=== PATIENT | female | born 1965 | race African-American/Black ===

== ENCOUNTER → 2017-04-11 | Outpatient (CLI) | payer OTHER ==
[2016-01-15 18:59] VITALS: BP 154/78
[2017-04-11 08:11] LABS: EOSINOPHILS # (AUTO) 0.2 x10^3/uL (0.0-0.2); EOSINOPHILS % (AUTO) 4.4 % (0.9-2.9); HEMATOCRIT 39.8 % (36.0-47.0); LYMPHOCYTES # (AUTO) 1.6 X10^3/uL (1.3-2.9); LYMPHOCYTES % (AUTO) 35.8 % (21.0-51.0); MEAN CORPUSCULAR HGB CONC 32.6 g/dL (33.0-35.0); MEAN PLATELET VOLUME 10.5 fL (7.4-11.0); MONOCYTES # (AUTO) 0.4 x10^3/uL (0.3-0.8); MONOCYTES % (AUTO) 8.2 % (0.0-13.0); NEUTROPHILS # (AUTO) 2.3 x10^3/uL (2.2-4.8); NEUTROPHILS % (AUTO) 50.6 % (42.0-75.0); PLATELET COUNT 157 X10^3/uL (150.0-450.0); RED BLOOD COUNT 4.63 X10^6/uL (3.5-5.4); WHITE BLOOD COUNT 4.6 X10^3/uL (3.6-10.0)
[2017-04-11 08:21] LABS: ALANINE AMINOTRANSFERASE 36 Units/L (12-78); ALBUMIN 3.3 g/dL (3.4-5.0); ALKALINE PHOSPHATASE 73 Units/L (46-116); ASPARTATE AMINO TRANSFERASE 23 Units/L (15-37); BILIRUBIN,DIRECT 0.08 mg/dL (0-0.2); BLOOD UREA NITROGEN 12 mg/dL (7-18); CALCIUM 8.1 mg/dL (8.5-10.1); CARBON DIOXIDE 30.8 mmol/L (21-32); CHLORIDE 108 mmol/L (98-107); CHOL/HDL RATIO 2.9 (0.0-5.0); CHOLESTEROL 166 mg/dL (0-200); CREATININE 0.92 mg/dL (0.55-1.02); GLUCOSE 95 mg/dL (65-99); HDL CHOLESTEROL 58 mg/dL (40-60); SODIUM 143 mmol/L (136-145); TOTAL PROTEIN 6.5 g/dL (6.4-8.2); TRIGLYCERIDES 50 mg/dL (0-150); eGFR BLACK RACES > 60 (>60); eGFR NON BLACK RACES > 60 (>60)
== END ==
LOC: LAB 07:47
PROVIDERS: ATTEND Internal Medicine Cardiovascular Disease
DX: R07.2 Precordial pain (principal); R00.2 Palpitations
CPT/HCPCS: 36415; 80048; 80061; 80076; 85025

== ENCOUNTER 2017-04-15 10:49 | Emergency (ER) | payer OTHER ==
[2017-04-15 10:55] VITALS: BP 118/74; BMI 31.4
--- NOTE | 2017-04-15 11:49 | DR.GENAD ---
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 BP NOT ELEVATED CURRENTLY. NO TRAUMA. - Complaint/Symptoms Chief Complaint Doctors Comments: NECK PAIN, BP ELEVATED. S/P CARDIAC CATH. DENIES CHEST PAIN. Chief Complaint:: PT. C/O HIGH BLOOD PRESSURE AND NECK PAIN. PT. WAS JUST DISCHARGED FROM [facility] IN [place] YESTERDAY WITH A DIAGNOSIS OF CARDIOMYOPATHY AND ANGINA PECTORIS. PT. IS CURRENTLY WEARING A HEART MONITOR. PT. HAD A HEART CATH PERFORMED ON SATURDAY. - Nurses notes reviewed Nurses Notes Review: Yes - Source History Provided: Patient - Mode of Arrival Mode of Arrival: Ambulatory - Timing Onset of Chief Complaint: 04/15/17 Came on: Suddenly - Duration Duration: Constant Duration: Hours - Severity Severity: Moderate PMH - PMH Past Medical History: Yes Past Medical History: Hypertension Past Medical History Comment: CARDIOMYOPATHY, ANGINA PECTORIS Past Surgical History: Yes Surgical History: - Family History History of Family Medical Conditions: Yes Family Medical History: Diabetes Mellitus, [place], Coronary Artery Disease, Hypertension - Social History Does patient currently use any type of tobacco product: Yes Have you used tobacco products in the last 12 months: Yes Type of Tobacco Use: Cigarettes Does any household member use tobacco: No Alcohol Use: None Do you use any recreational Drugs:: No Lives With: Spouse Lives Where: Home - infectious screening In the last 2 months have you had wt loss of >10#?: NO Have you had fever, night sweats or hemotysis?: No Have you traveled outside the country in the last 6 months?: No Isolation: Standard ROS - Review of Systems Constitutional: No Symptoms Reported Eyes: No Symptoms Reported ENTM: No Symptoms Reported Respiratoy: No Symptoms Reported Cardiovascular: Other (BP ELEVATED AT HOME.) Gastrointestinal/Abdominal: No Symptoms Reported Genitourinary: No Symptoms Reported Neurological: No Symptoms Reported Musculoskeletal: Muscle Pain, Neck Pain Integumentary: No Symptoms Reported Hematologic/Lymphatic: No Symptoms Reported Endocrine: No Symptoms Reported All Other Systems: Reviewed and Negative PE - Vital Signs Vitals: Temperature 97.7 F Pulse Rate 57 Respiratory Rate 17 Blood Pressure 118/74 O2 Sat by Pulse Oximetry 98 - General Limitations: No Limitations General Appearance: Alert - Head Head Exam: Normal Inspection - Eyes Eye exam: Normal Appearance - ENT ENT Exam: Normal External Ear Exam External Ear Exam: Normal External Inspection TM/Canal Exam: Bilateral Normal Nose Exam: Normal Nose Exam Mouth Exam: Normal Inspection Throat Exam: Normal Inspection - Neck Neck Exam: Trachea Midline, Tenderness. negative: Meningismus, Lymphadenopathy - Chest Chest Inspection: Symmetric Chest Wall Rise - Respiratory Respiratory Exam: Normal Lung Sounds Bilat Respiratory Exam: Bilateral Clear to Auscultation - Cardiovascular Cardiovascular Exam: Regular Rate, Normal Rhythm, Normal Heart Sounds - Abdominal Exam Abdominal Exam: Normal Inspection - Extremities Extremities Exam: Normal Inspection - Back Back Exam: Normal Inspection - Neurologic Neurological Exam: Alert, Oriented X3 - Skin Skin Exam: Normal Color MDM - Additional Information Additional Information Obtained From: Old Records (SPRAIN, FRACTURE, HTN) - Differential Diagnosis Differential Diagnosis: HTN AT HOME, NECK PAIN, SPRAIN, FRACTURE, CAD, [place] Course - Treatment Treatment: SEE ORDERS. - Education/Counseling Education/Counseling: Patient, Education Educated On: Diagnosis, Needs for Follow Up ROR - Labs Reviewed Laboratory Results Reviewed?: Yes Result Diagrams: 04/15/17 12:18 04/15/17 12:18 Laboratory: WBC 4.7 X10^3/uL (3.6-10.0) 04/15/17 12:18 RBC 4.70 X10^6/uL (3.5-5.4) 04/15/17 12:18 Hgb 13.4 g/dL (12.0-16.0) 04/15/17 12:18 Hct 40.5 % (36.0-47.0) 04/15/17 12:18 MCV 86.3 fL (80.0-100.0) 04/15/17 12:18 MCH 28.5 pg (27.0-34.0) 04/15/17 12:18 MCHC 33.0 g/dL (33.0-35.0) 04/15/17 12:18 RDW 14.7 % (11.6-16.5) 04/15/17 12:18 Plt Count 138 X10^3/uL (150.0-450.0) L 04/15/17 12:18 MPV 10.6 fL (7.4-11.0) 04/15/17 12:18 Neut % 40.5 % (42.0-75.0) L 04/15/17 12:18 Lymph % 44.6 % (21.0-51.0) 04/15/17 12:18 [place] % 9.4 % (0.0-13.0) 04/15/17 12:18 Eos % 4.7 % (0.9-2.9) H 04/15/17 12:18 Baso % 0.8 % (0.2-1.0) 04/15/17 12:18 Neut # 1.9 x10^3/uL (2.2-4.8) L 04/15/17 12:18 Lymph # 2.1 X10^3/uL (1.3-2.9) 04/15/17 12:18 [place] # 0.4 x10^3/uL (0.3-0.8) 04/15/17 12:18 Eos # 0.2 x10^3/uL (0.0-0.2) 04/15/17 12:18 Baso # 0.0 X10^3/uL (0.0-0.1) 04/15/17 12:18 Absolute Nucleated RBC 0.1 /100WBC 04/15/17 12:18 Sodium 139 mmol/L (136-145) 04/15/17 12:18 Corrected Sodium TNP 04/15/17 12:18 Potassium 4.7 mmol/L (3.5-5.1) 04/15/17 12:18 Chloride 103 mmol/L (98-107) 04/15/17 12:18 Carbon Dioxide 32.9 mmol/L (21-32) H 04/15/17 12:18 BUN 11 mg/dL (7-18) 04/15/17 12:18 Creatinine 0.79 mg/dL (0.55-1.02) 04/15/17 12:18 Est GFR (MDRD) Af Amer > 60 (>60) 04/15/17 12:18 Est GFR (MDRD) Non-Af > 60 (>60) 04/15/17 12:18 Glucose 85 mg/dL (65-99) 04/15/17 12:18 Calcium 8.8 mg/dL (8.5-10.1) 04/15/17 12:18 Corrected Calcium TNP 04/15/17 12:18 Total Bilirubin 0.60 mg/dL (0.2-1.0) 04/15/17 12:18 AST 29 Units/L (15-37) 04/15/17 12:18 ALT 28 Units/L (12-78) 04/15/17 12:18 Alkaline Phosphatase 70 Units/L (46-116) 04/15/17 12:18 Creatine Kinase 72 Units/L (26-192) 04/15/17 12:18 CK-MB (CK-2) 1.0 ng/mL (0-4.0) 04/15/17 12:18 CK/CKMB % Calc 1.4 % (<4) 04/15/17 12:18 Troponin I < 0.02 ng/mL (0-1.5) 04/15/17 12:18 Total Protein 7.3 g/dL (6.4-8.2) 04/15/17 12:18 Albumin 3.6 g/dL (3.4-5.0) 04/15/17 12:18 Globulin 3.7 g/dL (2.5-4.5) 04/15/17 12:18 Albumin/Globulin Ratio 1.0 Ratio (1.1-2.1) L 04/15/17 12:18 - XRAY XRAY Interpreted by: Radiologist XRAY Findings: REPORT DISCUSS WITH PATIENT. - EKG Rhythm: NSR (EKG NOTED) - Diagnosis Discharge Problem: Cervical strain, acute Qualifiers: Encounter type: initial encounter Qualified Code(s): S16.1XXA - Strain of muscle, fascia and tendon at neck level, initial encounter Hypertension Qualifiers: Hypertension type: unspecified Qualified Code(s): I10 - Essential (primary) hypertension Cardiomyopathy Qualifiers: Cardiomyopathy type: unspecified Qualified Code(s): I42.9 - Cardiomyopathy, unspecified - Discharge Plan Disposition: HOME, SELF-CARE Condition: Stable Prescriptions: Cyclobenzaprine HCl [FLEXERIL 10 MG *] 10 mg PO TID PRN #20 tab PRN Reason: Ibuprofen [MOTRIN TAB 600 MG *] 600 mg PO TID PRN #20 tab PRN Reason: Pain/Inflammation - Follow ups/Referrals Follow ups/Referrals: ROSEMARIE LIEBERMAN [Primary Care Provider] - 3 days - Instructions Instructions: Cervical Sprain, [id number], Hypertension Additional Instructions: RETURN TO ED IF WORSE.
--- NOTE | 2017-04-15 12:16 | RAD ---
HISTORY: Chest pain. Study: PA and lateral chest. Comparison: Chest x-ray dated January 15, 2016. Findings: The trachea is midline. The cardiac silhouette is enlarged but unchanged. The lungs are clear with out focal infiltrate or effusion. The bony thorax is unremarkable. IMPRESSION: 1. No acute cardiopulmonary disease. Reported By:
--- NOTE | 2017-04-15 12:21 | RAD ---
HISTORY: Neck pain. Study: Three views of the cervical spine. Comparison: None. Findings: Normal cervical lordosis without obvious fracture or listhesis. Mild disk space narrowing is seen at C5 through C7 with associated endplate sclerosis and anterior disc osteophyte complexes. Congenital spinal canal narrowing. Multilevel uncovertebral hypertrophy. The prevertebral soft tissues and jonathan g apices are clear. IMPRESSION: Chronic findings as above. Reported By:
[2017-04-15 12:33] LABS: BASOPHILS % (AUTO) 0.8 % (0.2-1.0); EOSINOPHILS # (AUTO) 0.2 x10^3/uL (0.0-0.2); EOSINOPHILS % (AUTO) 4.7 % (0.9-2.9); HEMATOCRIT 40.5 % (36.0-47.0); HEMOGLOBIN 13.4 g/dL (12.0-16.0); LYMPHOCYTES # (AUTO) 2.1 X10^3/uL (1.3-2.9); LYMPHOCYTES % (AUTO) 44.6 % (21.0-51.0); MEAN CORPUSCULAR HEMOGLOBIN 28.5 pg (27.0-34.0); MEAN CORPUSCULAR VOLUME 86.3 fL (80.0-100.0); MEAN PLATELET VOLUME 10.6 fL (7.4-11.0); MONOCYTES # (AUTO) 0.4 x10^3/uL (0.3-0.8); MONOCYTES % (AUTO) 9.4 % (0.0-13.0); NEUTROPHILS # (AUTO) 1.9 x10^3/uL (2.2-4.8); NEUTROPHILS % (AUTO) 40.5 % (42.0-75.0); PLATELET COUNT 138 X10^3/uL (150.0-450.0); RED CELL DISTRIBUTION WIDTH 14.7 % (11.6-16.5); WHITE BLOOD COUNT 4.7 X10^3/uL (3.6-10.0)
[2017-04-15 12:50] LABS: BLOOD UREA NITROGEN 11 mg/dL (7-18); CALCIUM 8.8 mg/dL (8.5-10.1); CARBON DIOXIDE 32.9 mmol/L (21-32); CHLORIDE 103 mmol/L (98-107); CREATININE 0.79 mg/dL (0.55-1.02); GLUCOSE 85 mg/dL (65-99); SODIUM 139 mmol/L (136-145); TROPONIN I < 0.02 ng/mL (0-1.5); eGFR BLACK RACES > 60 (>60); eGFR NON BLACK RACES > 60 (>60)
[2017-04-15 12:55] LABS: ALANINE AMINOTRANSFERASE 28 Units/L (12-78); ALBUMIN 3.6 g/dL (3.4-5.0); ALKALINE PHOSPHATASE 70 Units/L (46-116); ASPARTATE AMINO TRANSFERASE 29 Units/L (15-37); CKMB % 1.4 % (<4); CREATINE KINASE 72 Units/L (26-192); TOTAL PROTEIN 7.3 g/dL (6.4-8.2)
== END 2017-04-15 13:14 | disposition home or self-care (01) ==
LOC: ER 11:04
DX: S16.1XXA Strain of muscle, fascia and tendon at neck level, initial encounter (principal); I10 Essential (primary) hypertension; I42.8 Other cardiomyopathies; Y33.XXXA Other specified events, undetermined intent, initial encounter; Y92.9 Unspecified place or not applicable
CPT/HCPCS: 36415; 71020; 72040; 80053; 82550; 82553; 84484; 85025; 93005; 93010; 99282; 99283

== ENCOUNTER 2017-05-11 02:44 | Emergency (ER) | payer SELFPAY ==
[2017-05-11 02:51] VITALS: BMI 31.4
[2017-05-11] MEDS ORDERED: ASPIRIN 81 MG CHEWTAB ONE (03:03)
[2017-05-11] MEDS ORDERED: NITROSTAT SL ONE (03:06)
[2017-05-11] MEDS ORDERED: ASPIRIN 81 MG CHEWTAB PO ONE (03:10)
[2017-05-11] MEDS ORDERED: NITROSTAT SL PRN (03:14)
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
[2017-05-11 03:18] LABS: BASOPHILS % (AUTO) 0.6 % (0.2-1.0); EOSINOPHILS # (AUTO) 0.3 x10^3/uL (0.0-0.2); EOSINOPHILS % (AUTO) 3.7 % (0.9-2.9); HEMATOCRIT 41.8 % (36.0-47.0); HEMOGLOBIN 13.9 g/dL (12.0-16.0); LYMPHOCYTES # (AUTO) 3.6 X10^3/uL (1.3-2.9); LYMPHOCYTES % (AUTO) 50.6 % (21.0-51.0); MEAN CORPUSCULAR HEMOGLOBIN 27.9 pg (27.0-34.0); MEAN CORPUSCULAR HGB CONC 33.2 g/dL (33.0-35.0); MEAN CORPUSCULAR VOLUME 84.3 fL (80.0-100.0); MEAN PLATELET VOLUME 10.3 fL (7.4-11.0); MONOCYTES # (AUTO) 0.7 x10^3/uL (0.3-0.8); MONOCYTES % (AUTO) 9.1 % (0.0-13.0); NEUTROPHILS # (AUTO) 2.6 x10^3/uL (2.2-4.8); PLATELET COUNT 148 X10^3/uL (150.0-450.0); RED BLOOD COUNT 4.96 X10^6/uL (3.5-5.4); WHITE BLOOD COUNT 7.2 X10^3/uL (3.6-10.0)
--- NOTE | 2017-05-11 03:25 | RAD ---
Chest, one view Indication: Chest pain, headache Comparison: 04/15/2017 Findings: Cardiac silhouette enlargement is unchanged. The lungs are clear without overt edema, foca l infiltrates, or significant pleural effusion. Impression: Stable cardiomegaly without acute chest process. Reported By:
[2017-05-11 03:29] LABS: BLOOD UREA NITROGEN 14 mg/dL (7-18); CALCIUM 8.7 mg/dL (8.5-10.1); CHLORIDE 105 mmol/L (98-107); CREATININE 0.92 mg/dL (0.55-1.02); GLUCOSE 100 mg/dL (65-99); SODIUM 139 mmol/L (136-145); TROPONIN I < 0.02 ng/mL (0-1.5); eGFR BLACK RACES > 60 (>60); eGFR NON BLACK RACES > 60 (>60)
[2017-05-11 03:34] LABS: ALANINE AMINOTRANSFERASE 17 Units/L (12-78); ALBUMIN 3.7 g/dL (3.4-5.0); ALKALINE PHOSPHATASE 79 Units/L (46-116); ASPARTATE AMINO TRANSFERASE 19 Units/L (15-37); CKMB % 1.3 % (<4); CREATINE KINASE 85 Units/L (26-192); CREATINE KINASE MB 1.1 ng/mL (0-4.0); TOTAL PROTEIN 7.5 g/dL (6.4-8.2)
[2017-05-11 03:43] LABS: BILIRUBIN,URINE NEGATIVE (NEGATIVE); BLOOD/HEMOGLOBIN,URINE 2+ (NEGATIVE); GLUCOSE, URINE NEGATIVE (NEGATIVE); KETONES,URINE NEGATIVE (NEGATIVE); LEUKOCYTE ESTERASE ,URINE 1+ (NEGATIVE); NITRITES,URINE NEGATIVE (NEGATIVE); PROTEIN,URINE NEGATIVE (NEGATIVE); UROBILINOGEN,URINE NORMAL (NORMAL)
[2017-05-11 03:44] LABS: MAGNESIUM 1.7 mg/dL (1.7-2.9); PHOSPHORUS 4.6 mg/dL (2.6-4.7)
[2017-05-11 03:52] LABS: APPEARANCE,URINE SLIGHTLY HAZY (CLEAR); BACTERIA,URINE TRACE /HPF (NEGATIVE); COLOR,URINE YELLOW (YELLOW); RBC,URINE 0-3 /HPF (NEGATIVE); SQUAMOUS EPITHELIAL CELL,UR NUMEROUS /HPF (NEGATIVE)
[2017-05-11 04:09] VITALS: BP 153/86
== END 2017-05-11 04:37 | disposition home or self-care (01) ==
LOC: ER 02:44
DX: R07.89 Other chest pain (principal); I51.7 Cardiomegaly
CPT/HCPCS: 36415; 71010; 80053; 81001; 82550; 82553; 83735; 84100; 84484; 85025; 85610; 85730; 93005; 93010; 96365; 99283; A4222

== ENCOUNTER 2017-08-17 01:35 | Emergency (ER) | payer SELFPAY ==
[2017-08-17 01:56] VITALS: BMI 25.2
[2017-08-17] MEDS ORDERED: ASPIRIN PO ONE (02:38)
[2017-08-17] MEDS ORDERED: TORADOL 30 MG VIAL IVP STA (02:39)
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
[2017-08-17] MEDS ORDERED: ASPIRIN ONE (02:50)
[2017-08-17] MEDS ORDERED: TORADOL 30 MG VIAL ONE (02:50)
[2017-08-17 03:11] LABS: BASOPHILS # (AUTO) 0.1 X10^3/uL (0.0-0.1); BASOPHILS % (AUTO) 0.9 % (0.2-1.0); EOSINOPHILS # (AUTO) 0.1 x10^3/uL (0.0-0.2); EOSINOPHILS % (AUTO) 1.9 % (0.9-2.9); HEMOGLOBIN 12.8 g/dL (12.0-16.0); LYMPHOCYTES # (AUTO) 2.3 X10^3/uL (1.3-2.9); LYMPHOCYTES % (AUTO) 33.7 % (21.0-51.0); MEAN CORPUSCULAR HGB CONC 32.8 g/dL (33.0-35.0); MEAN CORPUSCULAR VOLUME 85.4 fL (80.0-100.0); MEAN PLATELET VOLUME 10.7 fL (7.4-11.0); MONOCYTES # (AUTO) 0.5 x10^3/uL (0.3-0.8); MONOCYTES % (AUTO) 7.6 % (0.0-13.0); NEUTROPHILS # (AUTO) 3.7 x10^3/uL (2.2-4.8); NEUTROPHILS % (AUTO) 55.9 % (42.0-75.0); PLATELET COUNT 158 X10^3/uL (150.0-450.0); RED BLOOD COUNT 4.57 X10^6/uL (3.5-5.4); WHITE BLOOD COUNT 6.7 X10^3/uL (3.6-10.0)
--- NOTE | 2017-08-17 03:16 | CT ---
CT chest without contrast Indication: Pushed out of chair with chest pain Technique: Helical CT images of the chest were obtained without IV contrast. Reformatted images in th e coronal and sagittal planes were also generated for review. Comparison: None Findings: No acute fracture or malalignment is identified. Superficial soft tissues are unremarkable. Limited noncontrast images of the upper abdomen demonstrate no acute abnormality. Within the limits of a noncontrast exam, the heart is mildly enlarged without pericardial effusion. N o significant mediastinal hematoma is seen. The unenhanced thoracic aorta and great vessels are gross ly normal in contour and caliber. The central airways are patent. There is no bulky lymphadenopathy. Apart from mild subsegmental atelectasis within the left lower lobe and right middle lobe, the lungs are clear without focal consolidation or pulmonary contusion/laceration. No pleural effusion or pneum othorax is identified. Impression: Mild cardiomegaly. Otherwise, unremarkable noncontrast CT chest exam. Reported By:
[2017-08-17 03:17] LABS: BLOOD UREA NITROGEN 23 mg/dL (7-18); CALCIUM 9.1 mg/dL (8.5-10.1); CARBON DIOXIDE 29.1 mmol/L (21-32); CHLORIDE 106 mmol/L (98-107); CREATININE 0.92 mg/dL (0.55-1.02); SODIUM 143 mmol/L (136-145); TROPONIN I 0.06 ng/mL (0-1.5); eGFR BLACK RACES > 60 (>60); eGFR NON BLACK RACES > 60 (>60)
[2017-08-17 03:22] LABS: ALANINE AMINOTRANSFERASE 22 Units/L (12-78); ALKALINE PHOSPHATASE 83 Units/L (46-116); ASPARTATE AMINO TRANSFERASE 23 Units/L (15-37); CKMB % 1.7 % (<4); CREATINE KINASE 134 Units/L (26-192); CREATINE KINASE MB 2.3 ng/mL (0-4.0); TOTAL PROTEIN 7.8 g/dL (6.4-8.2)
[2017-08-17 04:21] VITALS: BP 142/84
== END 2017-08-17 04:15 | disposition home or self-care (01) ==
LOC: ER 01:35
DX: S20.20XA Contusion of thorax, unspecified, initial encounter (principal); R07.89 Other chest pain; I51.7 Cardiomegaly; W19.XXXA Unspecified fall, initial encounter; Y04.0XXA Assault by unarmed brawl or fight, initial encounter; Y92.9 Unspecified place or not applicable
CPT/HCPCS: 36415; 71250; 80053; 82550; 82553; 83735; 84484; 85025; 85610; 85730; 93005; 93010; 96365; 96374; 99283; A4222; J1885

== ENCOUNTER 2018-02-14 16:23 | Emergency (ER) | payer OTHER ==
[2018-02-14 16:35] VITALS: BP 135/83; BMI 32.5
--- NOTE | 2018-02-14 18:36 | DR.GENAD ---
HPI - PCP Primary Care Physician: TARAH LIEBERMAN - Complaint/Symptoms Chief Complaint:: PT C/O LEFT HAND NUMBNESS X 4 DAYS AND STATES SHE HAS A PAIN RUNNING UP LEFT ARM - Nurses notes reviewed Nurses Notes Review: Yes - Source History Provided: Patient - Mode of Arrival Mode of Arrival: Ambulatory - Timing Onset of Chief Complaint: 02/11/18 Came on: Suddenly - Severity Severity: Moderate PMH - PMH Past Medical History: Yes Past Medical History: Hypertension Past Surgical History: Yes Surgical History: Past Surgical History Comment: PT HAD HEART CATH APRIL 2017 - Family History History of Family Medical Conditions: Yes Family Medical History: Diabetes Mellitus, [place], Coronary Artery Disease, Hypertension - Social History Does patient currently use any type of tobacco product: Yes Have you used tobacco products in the last 12 months: Yes Type of Tobacco Use: Cigarettes Does any household member use tobacco: No Alcohol Use: None Do you use any recreational Drugs:: No Lives With: Spouse Lives Where: Home - infectious screening In the last 2 months have you had wt loss of >10#?: NO Have you had fever, night sweats or hemotysis?: No Have you traveled outside the country in the last 6 months?: No Isolation: Standard PE - Vital Signs Vitals: Temperature 97.8 F Pulse Rate 64 Respiratory Rate 20 Blood Pressure [Left Arm] 142/84 Blood Pressure 135/83 O2 Sat by Pulse Oximetry 100 ROR - Labs Reviewed Result Diagrams: 02/14/18 19:16 02/14/18 19:16 Laboratory: WBC 7.7 X10^3/uL (3.6-10.0) 02/14/18 19:16 RBC 4.46 X10^6/uL (3.5-5.4) 02/14/18 19:16 Hgb 12.9 g/dL (12.0-16.0) 02/14/18 19:16 Hct 38.9 % (36.0-47.0) 02/14/18 19:16 MCV 87.2 fL (80.0-100.0) 02/14/18 19:16 MCH 28.8 pg (27.0-34.0) 02/14/18 19:16 MCHC 33.1 g/dL (33.0-35.0) 02/14/18 19:16 RDW 15.5 % (11.6-16.5) 02/14/18 19:16 Plt Count 180 X10^3/uL (150.0-450.0) 02/14/18 19:16 MPV 10.1 fL (7.4-11.0) 02/14/18 19:16 Neut % (Auto) 70.0 % (42.0-75.0) 02/14/18 19:16 Lymph % (Auto) 20.7 % (21.0-51.0) L 02/14/18 19:16 [place] % (Auto) 5.6 % (0.0-13.0) 02/14/18 19:16 Eos % (Auto) 3.3 % (0.9-2.9) H 02/14/18 19:16 Baso % (Auto) 0.4 % (0.2-1.0) 02/14/18 19:16 Neut # (Auto) 5.4 x10^3/uL (2.2-4.8) H 02/14/18 19:16 Lymph # (Auto) 1.6 X10^3/uL (1.3-2.9) 02/14/18 19:16 [place] # (Auto) 0.4 x10^3/uL (0.3-0.8) 02/14/18 19:16 Eos # (Auto) 0.3 x10^3/uL (0.0-0.2) H 02/14/18 19:16 Baso # (Auto) 0.0 X10^3/uL (0.0-0.1) 02/14/18 19:16 Absolute Nucleated RBC 0.0 /100WBC 02/14/18 19:16 INR Target Range - 02/14/18 19:16 INR 0.98 (0.8-1.3) 02/14/18 19:16 APTT 28.6 SECONDS (22.9-36.5) 02/14/18 19:16 PTT Comment - 02/14/18 19:16 Sodium 144 mmol/L (136-145) 02/14/18 19:16 Corrected Sodium TNP 02/14/18 19:16 Potassium 4.2 mmol/L (3.5-5.1) 02/14/18 19:16 Chloride 106 mmol/L (98-107) 02/14/18 19:16 Carbon Dioxide 34.5 mmol/L (21-32) H 02/14/18 19:16 BUN 12 mg/dL (7-18) 02/14/18 19:16 Creatinine 0.89 mg/dL (0.55-1.02) 02/14/18 19:16 Est GFR (MDRD) Af Amer > 60 (>60) 02/14/18 19:16 Est GFR (MDRD) Non-Af > 60 (>60) 02/14/18 19:16 Glucose 93 mg/dL (65-99) 02/14/18 19:16 Calcium 8.8 mg/dL (8.5-10.1) 02/14/18 19:16 Corrected Calcium TNP 02/14/18 19:16 Total Bilirubin 0.20 mg/dL (0.2-1.0) 02/14/18 19:16 AST 11 Units/L (15-37) L 02/14/18 19:16 ALT 19 Units/L (12-78) 02/14/18 19:16 Alkaline Phosphatase 78 Units/L (46-116) 02/14/18 19:16 Creatine Kinase 64 Units/L (26-192) 02/14/18 19:16 CK-MB (CK-2) 1.3 ng/mL (0-4.0) 02/14/18 19:16 CK/CKMB % Calc 2.0 % (<4) 02/14/18 19:16 Troponin I < 0.02 ng/mL (0-1.5) 02/14/18 19:16 Total Protein 7.6 g/dL (6.4-8.2) 02/14/18 19:16 Albumin 3.9 g/dL (3.4-5.0) 02/14/18 19:16 Globulin 3.7 g/dL (2.5-4.5) 02/14/18 19:16 Albumin/Globulin Ratio 1.1 Ratio (1.1-2.1) 02/14/18 19:16 - Diagnosis Discharge Problem: Abnormal CT of the head, Left arm numbness Chest pain Qualifiers: Chest pain type: precordial pain Qualified Code(s): R07.2 - Precordial pain - Discharge Plan Condition: Stable - Follow ups/Referrals Follow ups/Referrals: LIEBERMAN,ROSEMARIE L [Primary Care Provider] - 02/17/18 - Instructions Instructions: Paresthesia, [id number], Chest Pain Observation Additional Instructions: RETURN TO ED IF WORSE. YOU ALSO HAVE CT HEAD THAT IS ABNORMAL. DISCUSS THIS WITH PCP.
[2018-02-14] MEDS ORDERED: TORADOL 60 MG VIAL IM ONE (18:52)
[2018-02-14] MEDS ORDERED: TORADOL 60 MG VIAL ONE (18:56)
[2018-02-14 19:29] LABS: BASOPHILS % (AUTO) 0.4 % (0.2-1.0); EOSINOPHILS # (AUTO) 0.3 x10^3/uL (0.0-0.2); EOSINOPHILS % (AUTO) 3.3 % (0.9-2.9); HEMATOCRIT 38.9 % (36.0-47.0); HEMOGLOBIN 12.9 g/dL (12.0-16.0); LYMPHOCYTES # (AUTO) 1.6 X10^3/uL (1.3-2.9); LYMPHOCYTES % (AUTO) 20.7 % (21.0-51.0); MEAN CORPUSCULAR HEMOGLOBIN 28.8 pg (27.0-34.0); MEAN CORPUSCULAR HGB CONC 33.1 g/dL (33.0-35.0); MEAN CORPUSCULAR VOLUME 87.2 fL (80.0-100.0); MEAN PLATELET VOLUME 10.1 fL (7.4-11.0); MONOCYTES # (AUTO) 0.4 x10^3/uL (0.3-0.8); MONOCYTES % (AUTO) 5.6 % (0.0-13.0); NEUTROPHILS # (AUTO) 5.4 x10^3/uL (2.2-4.8); PLATELET COUNT 180 X10^3/uL (150.0-450.0); RED BLOOD COUNT 4.46 X10^6/uL (3.5-5.4); RED CELL DISTRIBUTION WIDTH 15.5 % (11.6-16.5); WHITE BLOOD COUNT 7.7 X10^3/uL (3.6-10.0)
--- NOTE | 2018-02-14 19:45 | CT ---
CT head without contrast Indication: Left-sided paresthesias and numbness for 4 days. Comparison: No similar priors available. Technique: Axial images from the skullbase to the vertex without contrast. Coronal and sagittal refor mats provided. Findings: There is no acute intracranial hemorrhage, mass or mass effect. There is no extra-axial flu id collection or abnormal area of hypoattenuation to suggest infarction. Ventricles and sulci are juan ssly normal. Right temporal lobe dilated perivascular space or incidental cyst noted. Review of bone windows shows no osseous lesion. Paranasal sinuses and mastoid air cells are clear. Impression: No acute intracranial hemorrhage. Right temporal lobe hypodensity is probably incidental cyst or dilated perivascular space. Nonemergent MR follow-up can confirm Reported By:
[2018-02-14 19:48] LABS: BLOOD UREA NITROGEN 12 mg/dL (7-18); CALCIUM 8.8 mg/dL (8.5-10.1); CARBON DIOXIDE 34.5 mmol/L (21-32); CHLORIDE 106 mmol/L (98-107); CREATININE 0.89 mg/dL (0.55-1.02); SODIUM 144 mmol/L (136-145); TROPONIN I < 0.02 ng/mL (0-1.5); eGFR BLACK RACES > 60 (>60); eGFR NON BLACK RACES > 60 (>60)
[2018-02-14 19:51] LABS: ALANINE AMINOTRANSFERASE 19 Units/L (12-78); ALBUMIN 3.9 g/dL (3.4-5.0); ALKALINE PHOSPHATASE 78 Units/L (46-116); ASPARTATE AMINO TRANSFERASE 11 Units/L (15-37); CREATINE KINASE 64 Units/L (26-192); CREATINE KINASE MB 1.3 ng/mL (0-4.0); TOTAL PROTEIN 7.6 g/dL (6.4-8.2)
--- NOTE | 2018-02-14 20:19 | RAD ---
Chest AP portable Indication: Left-sided paresthesias and numbness Comparison: 05/11/2017 Findings: There is cardiomegaly without pneumothorax, effusion or consolidation. Impression: Enlarged heart without other acute chest process Reported By:
[2018-02-14 20:37] LABS: BILIRUBIN,URINE NEGATIVE (NEGATIVE); BLOOD/HEMOGLOBIN,URINE NEGATIVE (NEGATIVE); GLUCOSE, URINE NEGATIVE (NEGATIVE); KETONES,URINE NEGATIVE (NEGATIVE); LEUKOCYTE ESTERASE ,URINE NEGATIVE (NEGATIVE); NITRITES,URINE NEGATIVE (NEGATIVE); PROTEIN,URINE NEGATIVE (NEGATIVE); UROBILINOGEN,URINE NORMAL (NORMAL)
[2018-02-14 20:47] LABS: APPEARANCE,URINE CLEAR (CLEAR); COLOR,URINE YELLOW (YELLOW)
== END 2018-02-14 20:51 | disposition home or self-care (01) ==
LOC: ER 16:39
DX: R93.0 Abnormal findings on diagnostic imaging of skull and head, not elsewhere classified (principal); R42 Dizziness and giddiness; R07.2 Precordial pain; I51.7 Cardiomegaly
CPT/HCPCS: 36415; 70450; 71045; 80053; 81003; 82550; 82553; 84484; 85025; 85610; 85730; 96372; 99282; 99283; J1885

== ENCOUNTER 2018-03-04 17:27 | Emergency (ER) | payer OTHER ==
--- NOTE | 2018-03-04 17:36 | DR.EXTPAIN ---
HPI - Time seen Time seen: 17:45 - HPI Comment HPI Comment: PATIENT SAID SHE SLIPPED ON WET AND FELL. ALMOST PASS OUT BUT COWORKERS KEPT TALKING TO HER. HAVING HEADACH AND PAIN PACK OF HEAD WITH NECK PAIN. LEFT THIGH AND ANKLE ARE ALSO HURTING. - Complaint/Symptoms Chief Complaint Doctor Comments: FELL AT WORK. HEAD, NECK, CHEST, LT THIGH AND LT ANKLE PAIN. - Nurses notes reviewed Nurses Notes Review: Yes - Source History Provided: Patient - Mode of arrival Mode of Arrival: Stretcher - Context History of: None - Associated signs and symptoms Associated Signs and Symptoms: Pain, Swelling, Bruising PMH - PMH Past Medical History: Hypertension Past Surgical History: Yes Surgical History: - Family History Family Medical History: Diabetes Mellitus, [place], Coronary Artery Disease, Hypertension - Social History Do you use any recreational Drugs:: No ROS - Review of Systems Constitutional: No Symptoms Reported. negative: Chills, Fever, Weakness, Fatigue Eyes: No Symptoms Reported. negative: Eye Pain, Discharge ENTM: No Symptoms Reported. negative: Ear Pain, Nose Discharge, Nose Congestion , Throat Pain Respiratoy: Short of Breath Cardiovascular: Chest Pain (CHEST WALL PAIN) Gastrointestinal/Abdominal: No Symptoms Reported Genitourinary: No Symptoms Reported Neurological: Headache Musculoskeletal: Back Pain (UPPER BACK), Neck Pain, Leg (LEFT THIGH PAIN.), Ankle (LEFT ANKLE PAIN AND SWELLING.) Integumentary: Bruises (LT ANKLE) Hematologic/Lymphatic: No Symptoms Reported Endocrine: No Symptoms Reported All Other Systems: Reviewed and Negative PE - Vital Signs Vitals: Temperature 98.2 F Pulse Rate 63 Respiratory Rate 20 Blood Pressure [Left Arm] 142/84 Blood Pressure 148/79 O2 Sat by Pulse Oximetry 100 - General Limitations: No Limitations General Appearance: Alert - Head Head Exam: Other (SCALP PAIN AT BACK OF HEAD.) - Eyes Eye exam: PERRL, EOMI - ENT ENT Exam: Normal External Ear Exam - Neck Neck Exam: Trachea Midline - Chest Chest Inspection: Symmetric Chest Wall Rise, Tenderness (CHEST WALL TENDERNESS) - Respiratory Respiratory Exam: Normal Lung Sounds Bilat, Chest Wall Tenderness Respiratory Exam: Bilateral Rhonchi, Lower Rhonchi - Cardiovascular Cardiovascular Exam: Regular Rate, Normal Rhythm, Normal Heart Sounds - Abdominal Exam Abdominal Exam: Normal Bowel Sounds, Soft. negative: Tenderness - Extremities Extremities Exam: Tenderness (SWELLING AND TENDERNESS LT ANKLE. TENDERNESS LEFT THIGH.) - Back Back Exam: Tenderness (UPPER BACK) - Neurological Neurological Exam: Alert, Oriented X3, CN II-XII Intact. negative: Motor Sensory Deficit - Psychiatric Psychiatric Exam: Anxious - Skin Skin Exam: Erythema MDM - Differential Diagnosis Differential Diagnosis: Contusion, Fracture, Sprain Course - Treatment Treatment: SEE ORDERS. TORADOL AND FLEXERIL IN ED. - Education/Counseling Education/Counseling: Patient, Family, Education Educated On: Treatment, Diagnosis, Needs for Follow Up ROR - XRAY XRAY Findings: REPORT DISCUSS WITH PATIENT AND FAMILY. - Diagnosis Discharge Problem: Headache, post-traumatic Qualifiers: Headache chronicity pattern: acute headache Intractability: intractable Qualified Code(s): G44.311 - Acute post-traumatic headache, intractable Head trauma Qualifiers: Encounter type: initial encounter Qualified Code(s): S09.90XA - Unspecified injury of head, initial encounter Contusion of thigh, left Qualifiers: Encounter type: initial encounter Qualified Code(s): S70.12XA - Contusion of left thigh, initial encounter Left ankle sprain Qualifiers: Encounter type: initial encounter Involved ligament of ankle: unspecified ligament Qualified Code(s): S93.402A - Sprain of unspecified ligament of left ankle, initial encounter Sinusitis Qualifiers: Sinusitis location: maxillary Chronicity: unspecified Qualified Code(s): J32.0 - Chronic maxillary sinusitis Cervical sprain Qualifiers: Encounter type: initial encounter Qualified Code(s): S13.9XXA - Sprain of joints and ligaments of unspecified parts of neck, initial encounter - Discharge Plan Condition: Stable Prescriptions: Cyclobenzaprine HCl [FLEXERIL 10 MG *] 10 mg PO TID PRN #20 tab PRN Reason: Ibuprofen [MOTRIN TAB 800 MG *] 800 mg PO Q8H PRN #30 tab PRN Reason: Pain/Inflammation Sulfamethoxazole-Trimethoprim [BACTRIM DS TAB 800/160 MG *] 1 tab PO BID #20 tab - Follow ups/Referrals Follow ups/Referrals: ROSEMARIE LIEBERMAN [Primary Care Provider] - 2 days - Instructions Instructions: Sinusitis, Adult, [id number], Muscle Strain, [id number], Head Injury, Adult, [id number], Cervical Sprain, [id number] Additional Instructions: RETURN TO ED IF WORSE.
[2018-03-04 17:39] VITALS: BMI 33.9
--- NOTE | 2018-03-04 18:49 | RAD ---
HISTORY: 52-year-old female slipped and fell with ankle pain. Study: Three views right ankle. Comparison: None. Findings: Talar dome is intact. No acute cortical disruption or dislocation can be identified. The ankle morti se remains well aligned. Soft tissue edema about the lateral aspect of the ankle. The visualized po rtions of the talus and calcaneus are unremarkable. IMPRESSION: 1. Soft tissue edema about the lateral aspect of the ankle without underlying fracture or malalignmen t. Reported By:
--- NOTE | 2018-03-04 18:50 | RAD ---
FEMUR RADIOGRAPHS CLINICAL HISTORY: 52-year-old female status post fall with right leg pain. COMPARISON: None. FINDINGS: 4 views of the right femur were obtained. These demonstrate no acute fracture or malalignme nt. The hip and knee articulations are congruent on provided views. There is no erosion, aggressive b one lesion or abnormal periosteal reaction. There is no soft tissue calcification or gas. The minera lization is maintained. IMPRESSION: No acute fracture or malalignment of the right femur. Reported By:
--- NOTE | 2018-03-04 18:51 | CT ---
HISTORY: Headache after slip and fall. Study: CT brain without contrast. Comparison: 02/14/2018. Technique: Multiple axial images of the brain were obtained from the skull base to the vertex without administra tion of IV contrast. Findings: There is an unchanged 8 mm hypodensity in the subinsular region on the right. No acute intraparenchym al hemorrhage or mass can be identified. No extra-axial fluid collections are seen. No alteration i n the attenuation of the brain parenchyma can be identified to suggest acute or subacute ischemic eufemia nge. The ventricular system is symmetric and nondilated. There is a small amount of nonspecific flui d within the left maxillary sinus. The extracranial structures are grossly unremarkable. IMPRESSION: No acute intracranial abnormality. Unchanged subcentimeter hypodensity in the subinsular region on the right. Small amount of nonspecific fluid in the left maxillary sinus. Reported By:
--- NOTE | 2018-03-04 18:57 | CT ---
CT CERVICAL SPINE WITHOUT CONTRAST CLINICAL HISTORY: 52-year-old female slipped and fell. Patient with headache. COMPARISON: None. TECHNIQUE: Multiple, noncontrasted axial CT images were obtained from the skull base to the cervical -thoracic junction and reformatted in the sagittal and coronal planes. FINDINGS: Straightening of the cervical lordosis as imaged. No acute fracture or malalignment. Multil evel degenerative change without significant central canal or neural foraminal stenosis. The atlanto- axial and atlanto-occipital relationships are normal. The posterior elements are normal in appearance and alignment. The soft tissues of the neck and lung apices are normal. IMPRESSION: No evidence of acute fracture or malalignment. Reported By:
--- NOTE | 2018-03-04 19:15 | CT ---
HISTORY: Fall. Study: CT chest without contrast Comparison: Chest x-ray dated February 14, 2018. Technique: Multiple axial images of the chest were obtained from the thoracic inlet to the upper abdo men without the administration of IV contrast. MIP images were obtained. Dose reduction techniques in cluding Automated Exposure Control (AEC) and adjustment of mA and kV were utilized. Findings: Study limited secondary to lack of IV contrast and motion artifact. The mediastinum does not demonstrate significant pathological lymphadenopathy. There is no paracardi al effusion observed. The thoracic aorta is normal in its contour without evidence for aneurysmal di latation. Mild cardiomegaly. No suspicious pulmonary nodule, mass, pleural effusion, focal consolidation, or pneumothorax. The upp er abdominal structures are unremarkable. Degenerative changes of the spine. No aggressive osseous le sions. IMPRESSION: No CT evidence of acute thoracic pathology. Reported By:
[2018-03-04] MEDS ORDERED: TORADOL TAB PO ONE ×2 (19:30→19:31)
[2018-03-04] MEDS ORDERED: FLEXERIL TAB 10 MG PO ONE (19:31)
[2018-03-04] MEDS ORDERED: FLEXERIL TAB 10 MG ONE (19:32)
[2018-03-04 19:44] VITALS: BP 148/77
== END 2018-03-04 19:44 | disposition home or self-care (01) ==
LOC: ER 17:39
DX: S09.8XXA Other specified injuries of head, initial encounter (principal); S70.12XA Contusion of left thigh, initial encounter; S93.402A Sprain of unspecified ligament of left ankle, initial encounter; S13.9XXA Sprain of joints and ligaments of unspecified parts of neck, initial encounter; G44.311 Acute post-traumatic headache, intractable; J32.0 Chronic maxillary sinusitis; M54.2 Cervicalgia; R07.89 Other chest pain; R06.02 Shortness of breath; R51 Headache; W19.XXXA Unspecified fall, initial encounter; Y92.69 Other specified industrial and construction area as the place of occurrence of the external cause
CPT/HCPCS: 70450; 71250; 72125; 73552; 73610; 99282; 99283

== ENCOUNTER → 2018-03-06 | Outpatient (CLI) | payer OTHER ==
[2018-02-14 16:35] VITALS: BP 135/83
== END ==
LOC: RAD 15:41
DX: I42.8 Other cardiomyopathies (principal)
CPT/HCPCS: 93306

== ENCOUNTER → 2018-03-07 | Outpatient (CLI) | payer OTHER ==
[2018-03-04 19:44] VITALS: BP 148/77
[2018-03-07 09:44] LABS: BASOPHILS % (AUTO) 0.7 % (0.2-1.0); EOSINOPHILS # (AUTO) 0.3 x10^3/uL (0.0-0.2); EOSINOPHILS % (AUTO) 6.1 % (0.9-2.9); HEMATOCRIT 36.5 % (36.0-47.0); HEMOGLOBIN 11.9 g/dL (12.0-16.0); LYMPHOCYTES % (AUTO) 35.9 % (21.0-51.0); MEAN CORPUSCULAR HEMOGLOBIN 28.5 pg (27.0-34.0); MEAN CORPUSCULAR HGB CONC 32.7 g/dL (33.0-35.0); MEAN CORPUSCULAR VOLUME 87.1 fL (80.0-100.0); MONOCYTES # (AUTO) 0.5 x10^3/uL (0.3-0.8); MONOCYTES % (AUTO) 8.8 % (0.0-13.0); NEUTROPHILS # (AUTO) 2.7 x10^3/uL (2.2-4.8); NEUTROPHILS % (AUTO) 48.5 % (42.0-75.0); PLATELET COUNT 166 X10^3/uL (150.0-450.0); RED BLOOD COUNT 4.19 X10^6/uL (3.5-5.4); RED CELL DISTRIBUTION WIDTH 14.4 % (11.6-16.5); WHITE BLOOD COUNT 5.5 X10^3/uL (3.6-10.0)
[2018-03-07 09:54] LABS: ALANINE AMINOTRANSFERASE 19 Units/L (12-78); ALBUMIN 3.5 g/dL (3.4-5.0); ALKALINE PHOSPHATASE 63 Units/L (46-116); ASPARTATE AMINO TRANSFERASE 20 Units/L (15-37); BILIRUBIN,DIRECT 0.11 mg/dL (0-0.2); BLOOD UREA NITROGEN 10 mg/dL (7-18); CALCIUM 7.9 mg/dL (8.5-10.1); CARBON DIOXIDE 29.7 mmol/L (21-32); CHLORIDE 106 mmol/L (98-107); CHOL/HDL RATIO 3.2 (0.0-5.0); CHOLESTEROL 197 mg/dL (0-200); CREATININE 0.95 mg/dL (0.55-1.02); HDL CHOLESTEROL 62 mg/dL (40-60); SODIUM 142 mmol/L (136-145); TOTAL PROTEIN 6.9 g/dL (6.4-8.2); TRIGLYCERIDES 45 mg/dL (0-150); eGFR BLACK RACES > 60 (>60); eGFR NON BLACK RACES > 60 (>60)
== END ==
LOC: LAB 09:28
PROVIDERS: ATTEND Internal Medicine Clinical Cardiac Electrophysiology
DX: I44.30 Unspecified atrioventricular block (principal)
CPT/HCPCS: 36415; 80048; 80061; 80076; 85025

== ENCOUNTER 2018-12-01 05:11 | Inpatient (IN) ==
[2018-12-01 05:33] VITALS: BMI 33.9
[2018-12-01] MEDS ORDERED: NITROSTAT SL PRN (05:37)
[2018-12-01] MEDS ORDERED: NITROSTAT SL ONE (05:37)
[2018-12-01 05:41] LABS: BASOPHILS # (AUTO) 0.1 X10^3/uL (0.0-0.1); BASOPHILS % (AUTO) 0.8 % (0.2-1.0); EOSINOPHILS # (AUTO) 0.2 x10^3/uL (0.0-0.2); EOSINOPHILS % (AUTO) 2.6 % (0.9-2.9); HEMATOCRIT 40.2 % (36.0-47.0); HEMOGLOBIN 13.1 g/dL (12.0-16.0); LYMPHOCYTES % (AUTO) 41.2 % (21.0-51.0); MEAN CORPUSCULAR HEMOGLOBIN 28.2 pg (27.0-34.0); MEAN CORPUSCULAR HGB CONC 32.7 g/dL (33.0-35.0); MEAN CORPUSCULAR VOLUME 86.4 fL (80.0-100.0); MEAN PLATELET VOLUME 9.8 fL (7.4-11.0); MONOCYTES # (AUTO) 0.8 x10^3/uL (0.3-0.8); MONOCYTES % (AUTO) 10.7 % (0.0-13.0); NEUTROPHILS # (AUTO) 3.2 x10^3/uL (2.2-4.8); NEUTROPHILS % (AUTO) 44.7 % (42.0-75.0); PLATELET COUNT 177 X10^3/uL (150.0-450.0); RED BLOOD COUNT 4.66 X10^6/uL (3.5-5.4); RED CELL DISTRIBUTION WIDTH 16.2 % (11.6-16.5); WHITE BLOOD COUNT 7.2 X10^3/uL (3.6-10.0)
--- NOTE | 2018-12-01 05:46 | DR.CP ---
HPI Time Seen Time Seen by Provider: 12/01/18 05:32 PCP Primary Care Physician: ELINOR Complaint Chief Complaint Doctor Comments: Chest pain during sleep hrs., this awakened her from sleep. It was pressure like but w/o radiation. She was dyspneic and d iaphoretic. She denies nausea and vomiting or palpitation. She has had cough, cold and chest congestion for a week. Her cough is productive of clear phlegm. She had rated the c/p as a 10 at its worst and that hasn't changed. Chief Complaint:: SUDDEN O/S OF CHEST PAIN, "WOKE ME OUT OF MY SLEEP", C/C/C, NAUSEA. PRODUCTIVE COUGH. 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 Past Surgical History Comment: TUBALIGATION PACEMAKER/DEFIBRILLATOR Family History History of Family Medical Conditions: Yes Family Medical History: Diabetes Mellitus, Heart Failure and Hypertension Social History Does patient currently use any type of tobacco product: Yes Have you used tobacco products in the last 12 months: Yes Type of Tobacco Use: Cigarettes Does any household member use tobacco: Yes Alcohol Use: Occasionally Do you use any recreational Drugs:: No Lives With: Spouse Lives Where: Home infectious screening In the last 2 months have you had wt loss of >10#?: NO Have you had fever, night sweats or hemotysis?: No Have you traveled outside the country in the last 6 months?: No Isolation: Standard ROS Review of Systems Constitutional: No Symptoms Reported Eyes: No Symptoms Reported ENTM: No Symptoms Reported Respiratoy: Productive Cough and Short of Breath Cardiovascular: Chest Pain Gastrointestinal/Abdominal: No Symptoms Reported Genitourinary: No Symptoms Reported Neurological: No Symptoms Reported Musculoskeletal: No Symptoms Reported Integumentary: No Symptoms Reported Hematologic/Lymphatic: No Symptoms Reported Endocrine: No Symptoms Reported Psychiatric: No Symptoms Reported PE Vitals Vitals: Temperature 98.0 F Pulse Rate [Apical] 70 Pulse Rate 63 Respiratory Rate 18 Blood Pressure [Left Arm] 141/89 Blood Pressure 162/121 O2 Sat by Pulse Oximetry 95 General Limitations: No Limitations General Appearance: Alert and In No Apparent Distress Head Head Exam: Normal Inspection, Atraumatic and Normocephalic Eyes Eye exam: Normal Appearance, PERRL and EOMI ENT ENT Exam: Normal Exam, Normal Oropharynx and Mucous Membranes Moist Chest Chest Inspection: Normal Inspection and Symmetric Chest Wall Rise Respiratory Respiratory Exam: Normal Lung Sounds Bilat Cardiovascular Cardiovascular Exam: Regular Rate, Normal Rhythm, Normal Heart Sounds, +S1 and +S2 Abdominal Exam Abdominal Exam: Normal Inspection, Normal Bowel Sounds and Soft Extremities Extremities Exam: Normal Inspection and Full ROM Neurologic Neurological Exam: Alert and Oriented X3 Psychiatric Psychiatric Exam: Normal Affect and Normal Mood Skin Skin Exam: Warm, Dry and Normal Color COURSE Reevaluation 1st: Improved 2nd: Resolved Consultation Consultation Comments: I spoke with Dr. Bradshaw at [facility], [place], [place] about this pt's. presentation and findings/developments. Her recommendation is that pt. should be placed into Obs. status and r/o ACS. then have her f/u with her director radio for PPM interrogation. Do not hesitate to call back for transfer if her condition deteriorates. I understand that Dr. Krishnan (director radio) will be coming here today. Education/Counseling Education/Counseling: Patient, Family, Education and Counseling Educated On: Treatment, Diagnosis, Prognosis and Needs for Follow Up ROR Labs Reviewed Result Diagrams: 12/01/18 05:30 12/01/18 05:30 Laboratory: WBC 7.2 X10^3/uL (3.6-10.0) 12/01/18 05:30 RBC 4.66 X10^6/uL (3.5-5.4) 12/01/18 05:30 Hgb 13.1 g/dL (12.0-16.0) 12/01/18 05:30 Hct 40.2 % (36.0-47.0) 12/01/18 05:30 MCV 86.4 fL (80.0-100.0) 12/01/18 05:30 MCH 28.2 pg (27.0-34.0) 12/01/18 05:30 MCHC 32.7 g/dL (33.0-35.0) L 12/01/18 05:30 RDW 16.2 % (11.6-16.5) 12/01/18 05:30 Plt Count 177 X10^3/uL (150.0-450.0) 12/01/18 05:30 MPV 9.8 fL (7.4-11.0) 12/01/18 05:30 Neut % (Auto) 44.7 % (42.0-75.0) 12/01/18 05:30 Lymph % (Auto) 41.2 % (21.0-51.0) 12/01/18 05:30 [place] % (Auto) 10.7 % (0.0-13.0) 12/01/18 05:30 Eos % (Auto) 2.6 % (0.9-2.9) 12/01/18 05:30 Baso % (Auto) 0.8 % (0.2-1.0) 12/01/18 05:30 Neut # (Auto) 3.2 x10^3/uL (2.2-4.8) 12/01/18 05:30 Lymph # (Auto) 3.0 X10^3/uL (1.3-2.9) H 12/01/18 05:30 [place] # (Auto) 0.8 x10^3/uL (0.3-0.8) 12/01/18 05:30 Eos # (Auto) 0.2 x10^3/uL (0.0-0.2) 12/01/18 05:30 Baso # (Auto) 0.1 X10^3/uL (0.0-0.1) 12/01/18 05:30 Absolute Nucleated RBC 0.0 /100WBC 12/01/18 05:30 INR Target Range - 12/01/18 05:30 INR 1.01 (0.8-1.3) 12/01/18 05:30 APTT 31.4 SECONDS (22.9-36.5) 12/01/18 05:30 PTT Comment - 12/01/18 05:30 Sodium 142 mmol/L (136-145) 12/01/18 05:30 Corrected Sodium 143 mmol/L (136-145) 12/01/18 05:30 Potassium 3.8 mmol/L (3.5-5.1) 12/01/18 05:30 Chloride 104 mmol/L (98-107) 12/01/18 05:30 Carbon Dioxide 32.2 mmol/L (21-32) H 12/01/18 05:30 BUN 11 mg/dL (7-18) 12/01/18 05:30 Creatinine 0.99 mg/dL (0.55-1.02) 12/01/18 05:30 Est GFR (MDRD) Af Amer > 60 (>60) 12/01/18 05:30 Est GFR (MDRD) Non-Af > 60 (>60) 12/01/18 05:30 Glucose 121 mg/dL (65-99) H 12/01/18 05:30 Calcium 9.2 mg/dL (8.5-10.1) 12/01/18 05:30 Corrected Calcium TNP 12/01/18 05:30 Total Bilirubin 0.60 mg/dL (0.2-1.0) 12/01/18 05:30 AST 23 Units/L (15-37) 12/01/18 05:30 ALT 24 Units/L (12-78) 12/01/18 05:30 Alkaline Phosphatase 92 Units/L (46-116) 12/01/18 05:30 Creatine Kinase 84 Units/L (26-192) 12/01/18 05:30 CK-MB (CK-2) 1.2 ng/mL (0-4.0) 12/01/18 05:30 CK/CKMB % Calc 1.4 % (<4) 12/01/18 05:30 Troponin I 0.02 ng/mL (0-1.5) 12/01/18 05:30 Total Protein 7.5 g/dL (6.4-8.2) 12/01/18 05:30 Albumin 3.5 g/dL (3.4-5.0) 12/01/18 05:30 Globulin 4.0 g/dL (2.5-4.5) 12/01/18 05:30 Albumin/Globulin Ratio 0.9 Ratio (1.1-2.1) L 12/01/18 05:30 XRAY XRAY Interpreted by: Radiologist XRAY Findings: CXR: Stable cardiomegaly, no acute process. EKG Rate: 77 [place]: Normal Rhythm: Paced Block: None Hypertrophy: None ST: Normal Diagnosis Discharge Problem: Chest pain Qualifiers: Chest pain type: precordial pain Qualified Code(s): R07.2 - Precordial pain Dysrhythmia Qualifiers: Arrhythmia type: ventricular tachycardia Qualified Code(s): I47.2 - Ventricular tachycardia CAD (coronary artery disease) Qualifiers: Coronary Disease-Associated Artery/Lesion type: [place] artery [place] vs. transplanted heart: [place] heart Associated angina: with stable angina Qualified Code(s): I25.118 - Atherosclerotic heart disease of [place] coronary artery with other forms of angina pectoris
[2018-12-01 06:02] LABS: BLOOD UREA NITROGEN 11 mg/dL (7-18); CALCIUM 9.2 mg/dL (8.5-10.1); CARBON DIOXIDE 32.2 mmol/L (21-32); CHLORIDE 104 mmol/L (98-107); COR NA(FOR HYPERGLY) 143 mmol/L (136-145); CREATININE 0.99 mg/dL (0.55-1.02); SODIUM 142 mmol/L (136-145); TROPONIN I 0.02 ng/mL (0-1.5); eGFR NON BLACK RACES > 60 (>60)
[2018-12-01] MEDS ORDERED: TYLENOL 325 MG TAB PO ONE (06:06)
[2018-12-01 06:09] LABS: ALANINE AMINOTRANSFERASE 24 Units/L (12-78); ALBUMIN 3.5 g/dL (3.4-5.0); ALKALINE PHOSPHATASE 92 Units/L (46-116); ASPARTATE AMINO TRANSFERASE 23 Units/L (15-37); CKMB % 1.4 % (<4); CREATINE KINASE 84 Units/L (26-192); CREATINE KINASE MB 1.2 ng/mL (0-4.0); TOTAL PROTEIN 7.5 g/dL (6.4-8.2)
--- NOTE | 2018-12-01 06:17 | RAD ---
Chest, one view Indication: Chest pain Comparison: 02/14/2018 Findings: There is stable enlargement of the cardiac silhouette without congestive failure. Left-sided AICD noted. Visualized lungs are clear without focal infiltrate. No pleural effusion or pneumothorax identified. Impression: Stable cardiomegaly without acute chest process. Reported By:
[2018-12-01] MEDS ORDERED: LOPRESSOR INJ 5 MG AMP ONE (06:18)
[2018-12-01] MEDS ORDERED: LOPRESSOR INJ 5 MG AMP IVP ONE (06:27)
[2018-12-01] MEDS ORDERED: TYLENOL 325 MG TAB PO PRN (06:27)
--- NOTE | 2018-12-01 08:25 | DR.CP ---
HPI Time Seen Time Seen by Provider: 12/01/18 05:32 PCP Primary Care Physician: ELINOR Complaint Chief Complaint:: SUDDEN O/S OF CHEST PAIN, "WOKE ME OUT OF MY SLEEP", C/C/C, NAUSEA. PRODUCTIVE COUGH. 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 [employer]PA[employer] Surgery Past Surgical History Comment: TUBALIGATION PACEMAKER/DEFIBRILLATOR Family History History of Family Medical Conditions: Yes Family Medical History: Diabetes Mellitus, Heart Failure and Hypertension Social History Does patient currently use any type of tobacco product: Yes Have you used tobacco products in the last 12 months: Yes Type of Tobacco Use: Cigarettes Does any household member use tobacco: Yes Alcohol Use: Occasionally Do you use any recreational Drugs:: No Lives With: Spouse Lives Where: Home infectious screening In the last 2 months have you had wt loss of >10#?: NO Have you had fever, night sweats or hemotysis?: No Have you traveled outside the country in the last 6 months?: No Isolation: Standard PE Vitals Vitals: Temperature 98.0 F Pulse Rate [Apical] 70 Pulse Rate 63 Respiratory Rate 18 Blood Pressure [Left Arm] 141/89 Blood Pressure 162/121 O2 Sat by Pulse Oximetry 95 ROR Labs Reviewed Result Diagrams: 12/01/18 05:30 12/01/18 05:30 Laboratory: WBC 7.2 X10^3/uL (3.6-10.0) 12/01/18 05:30 RBC 4.66 X10^6/uL (3.5-5.4) 12/01/18 05:30 Hgb 13.1 g/dL (12.0-16.0) 12/01/18 05:30 Hct 40.2 % (36.0-47.0) 12/01/18 05:30 MCV 86.4 fL (80.0-100.0) 12/01/18 05:30 MCH 28.2 pg (27.0-34.0) 12/01/18 05:30 MCHC 32.7 g/dL (33.0-35.0) L 12/01/18 05:30 RDW 16.2 % (11.6-16.5) 12/01/18 05:30 Plt Count 177 X10^3/uL (150.0-450.0) 12/01/18 05:30 MPV 9.8 fL (7.4-11.0) 12/01/18 05:30 Neut % (Auto) 44.7 % (42.0-75.0) 12/01/18 05:30 Lymph % (Auto) 41.2 % (21.0-51.0) 12/01/18 05:30 [place] % (Auto) 10.7 % (0.0-13.0) 12/01/18 05:30 Eos % (Auto) 2.6 % (0.9-2.9) 12/01/18 05:30 Baso % (Auto) 0.8 % (0.2-1.0) 12/01/18 05:30 Neut # (Auto) 3.2 x10^3/uL (2.2-4.8) 12/01/18 05:30 Lymph # (Auto) 3.0 X10^3/uL (1.3-2.9) H 12/01/18 05:30 [place] # (Auto) 0.8 x10^3/uL (0.3-0.8) 12/01/18 05:30 Eos # (Auto) 0.2 x10^3/uL (0.0-0.2) 12/01/18 05:30 Baso # (Auto) 0.1 X10^3/uL (0.0-0.1) 12/01/18 05:30 Absolute Nucleated RBC 0.0 /100WBC 12/01/18 05:30 INR Target Range - 12/01/18 05:30 INR 1.01 (0.8-1.3) 12/01/18 05:30 APTT 31.4 SECONDS (22.9-36.5) 12/01/18 05:30 PTT Comment - 12/01/18 05:30 Sodium 142 mmol/L (136-145) 12/01/18 05:30 Corrected Sodium 143 mmol/L (136-145) 12/01/18 05:30 Potassium 3.8 mmol/L (3.5-5.1) 12/01/18 05:30 Chloride 104 mmol/L (98-107) 12/01/18 05:30 Carbon Dioxide 32.2 mmol/L (21-32) H 12/01/18 05:30 BUN 11 mg/dL (7-18) 12/01/18 05:30 Creatinine 0.99 mg/dL (0.55-1.02) 12/01/18 05:30 Est GFR (MDRD) Af Amer > 60 (>60) 12/01/18 05:30 Est GFR (MDRD) Non-Af > 60 (>60) 12/01/18 05:30 Glucose 121 mg/dL (65-99) H 12/01/18 05:30 Calcium 9.2 mg/dL (8.5-10.1) 12/01/18 05:30 Corrected Calcium TNP 12/01/18 05:30 Total Bilirubin 0.60 mg/dL (0.2-1.0) 12/01/18 05:30 AST 23 Units/L (15-37) 12/01/18 05:30 ALT 24 Units/L (12-78) 12/01/18 05:30 Alkaline Phosphatase 92 Units/L (46-116) 12/01/18 05:30 Creatine Kinase 84 Units/L (26-192) 12/01/18 05:30 CK-MB (CK-2) 1.2 ng/mL (0-4.0) 12/01/18 05:30 CK/CKMB % Calc 1.4 % (<4) 12/01/18 05:30 Troponin I 0.02 ng/mL (0-1.5) 12/01/18 05:30 Total Protein 7.5 g/dL (6.4-8.2) 12/01/18 05:30 Albumin 3.5 g/dL (3.4-5.0) 12/01/18 05:30 Globulin 4.0 g/dL (2.5-4.5) 12/01/18 05:30 Albumin/Globulin Ratio 0.9 Ratio (1.1-2.1) L 12/01/18 05:30 Diagnosis Discharge Problem: Chest pain Qualifiers: Chest pain type: precordial pain Qualified Code(s): R07.2 - Precordial pain Dysrhythmia Qualifiers: Arrhythmia type: ventricular tachycardia Qualified Code(s): I47.2 - Ventricular tachycardia CAD (coronary artery disease) Qualifiers: Coronary Disease-Associated Artery/Lesion type: [place] artery [place] vs. transplanted heart: [place] heart Associated angina: with stable angina Qualified Code(s): I25.118 - Atherosclerotic heart disease of [place] coronary artery with other forms of angina pectoris
[2018-12-01] MEDS ORDERED: ASPIRIN EC 81 MG PO SCH (09:00)
[2018-12-01] MEDS ORDERED: NS 1000 ML 1,000 ML ONE (09:08)
[2018-12-01] MEDS: COREG TAB 12.5 MG PO SCH ×2 (09:10→16:18)
[2018-12-01] MEDS: MAGNESIUM SULFATE 1 GRAM/100 mL PREMIX 2 G/200 ML BAG IV SCH ×2 (09:11→11:34)
[2018-12-01 09:18] LABS: CKMB % 4.5 % (<4); TROPONIN I 0.55 ng/mL (0-1.5)
[2018-12-01 09:20] LABS: CREATINE KINASE MB 4.6 ng/mL (0-4.0)
--- NOTE | 2018-12-01 10:32 | CONS ---
Cardiology Consult Consultation for Day of: Date: 12/01/18 Chief Complaint Chief Complaint: Chest pain Allergies Allergies Allergy/AdvReac Type Severity Reaction Status Date / Time Penicillins Allergy Verified 12/01/18 05:33 History of Present Illness History of Present Illness: The patient presents with cp to the Ed that started this Am. She says it was in the center of her chest and started while she was laying in bed. She tried to take ASA but got no relief. She came to the Ed and per the nurse and patient she went into Vfib and received a shock from her ICD. The patient has been given NTG which she says has helped with her chest pain and no other ICD shocks have been delivered yet. Her labs do show her cardiac enzymes have become abnormal with her troponin initially being 0.02 and now 0.55. Patient's labs do show she has a magnesium level 1.7 with potassium level 3.8. Her last LCH was in 2017 which was negative for any significant CAD. 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 Additional Surgical History: ICD Family History Family Medical History: Diabetes Mellitus, Heart Failure and Hypertension Social History Does patient currently use any type of tobacco product: Yes Have you used tobacco products in the last 12 months: Yes Type of Tobacco Use: Cigarettes How many years tobacco product used: 36 Does any household member use tobacco: Yes (PT'S SMOKES) Alcohol Use: DAILY (2 beer/day) Drug Use: None Medications Home Medications: Penicillins Allergy (Verified 12/01/18 05:33) Physical Exam Vital Signs: Temperature 97.6 F Pulse Rate [Apical] 70 Pulse Rate 63 Respiratory Rate 18 Blood Pressure [Left Arm] 156/94 Blood Pressure 162/121 O2 Sat by Pulse Oximetry 100 Oriented: Normal Eyes: Normal Respiratory: Clear Throughout Cardiovascular: Normal Auscultation: Bowel Sounds: Normal Palpation: Normal Skin: Normal Musculoskeletal: Normal Affect: Normal Speech Pattern: Clear and Appropriate Medical Decision Making Reason for Consult: Cardiac Dysrhythmia EKG Results: Sinus Rhythm (AV paced) Labs reviewed: Yes Plan Plan: 1. NICMP - with ICD delivering shock Will continue to monitor on telemetry 2. Chest pain- resolved Will plan for Lexiscan on Saturday if stable Monitor next set of cardiac enzymes 3. HTN- controlled not optimized Will increase coreg 31.25mg BID 4. PAF- AV paced currently 5. Abnormal electrolytes replace electrolytes per protocal
[2018-12-01] MEDS ORDERED: LEXISCAN IV ONE (11:06)
[2018-12-01 15:57] LABS: CKMB % 15.3 % (<4)
[2018-12-01 15:59] LABS: CREATINE KINASE MB 54.7 ng/mL (0-4.0); TROPONIN I 3.93 ng/mL (0-1.5)
[2018-12-01] MEDS ORDERED: COREG TAB 12.5 MG PO ONE (16:17)
[2018-12-01] MEDS ORDERED: ZESTRIL TAB 20 MG ONE (16:25)
[2018-12-01] MEDS: ZESTRIL TAB 20 MG PO ONE (16:25)
[2018-12-01] MEDS ORDERED: ASPIRIN PO SCH (16:30)
[2018-12-01 16:49] VITALS: BP 154/96
[2018-12-01] MEDS ORDERED: HEPARIN SODIUM IN D5W 25,000 UNITS/500 ML BAG IV PRN (16:50)
[2018-12-01] MEDS ORDERED: HEPARIN SODIUM INJ 5000 UNITS ONE (16:58)
[2018-12-01] MEDS ORDERED: HEPARIN SODIUM IN D5W 25,000 UNITS/500 ML BAG IV ONE (16:58)
[2018-12-01] MEDS ORDERED: COREG TAB 25 MG PO SCH (21:00)
== END 2018-12-01 18:00 | disposition short-term general hospital (02) | DRG 313 ==
LOC: ER 05:14 → ICU 08:12
PROVIDERS: ADMIT Obstetrics & Gynecology Obstetrics; ATTEND Obstetrics & Gynecology Obstetrics
DX: I42.8 Other cardiomyopathies; R07.89 Other chest pain; R94.31 Abnormal electrocardiogram [ECG] [EKG]; I49.8 Other specified cardiac arrhythmias; I25.118 Atherosclerotic heart disease of native coronary artery with other forms of angina pectoris; R06.02 Shortness of breath; I47.2 Ventricular tachycardia; E87.8 Other disorders of electrolyte and fluid balance, not elsewhere classified; I10 Essential (primary) hypertension
CPT/HCPCS: 36415; 71010; 71045; 80053; 82550; 82553; 83735; 84484; 85025; 85610; 85730; 87070; 87205; 93005; 96365; 96374; 99284; 99285; A4222; J1644; J3475; J3490; J7030